=== PATIENT | female | born 1995 | race Caucasian/White ===

== ENCOUNTER → 2020-06-01 | Outpatient (CLI) | payer OTHER ==
--- NOTE | 2020-06-01 13:03 | RAD ---
Exam Date: 06/01/2020 11:39 AM XR BILATERAL HIP (WITH OR WITHOUT PELVIS) LEFT 2 VIEWS, XR LUMBAR SPINE 2-3V Indication: Reason: LOW BACK PAIN AT MULTIPLE SITES. LEFT HIP PAIN. / Spl. Instructions: / History: FINDINGS/ IMPRESSION: Lumbar spine: Anatomic alignment is maintained without spondylolisthesis. The vertebral body heights are maintaine d without evidence of compression fracture. Disc spaces are maintained. The SI joints appear norm al. The visualized soft tissues are within normal limits. Pelvis and left hip: No acute fracture or dislocation. Alignment and joint spaces are maintained. Soft tissues are within normal limits. Electronically signed by: Titi Quinteros MD (06/01/2020 1:00 PM) [id number]
== END ==
LOC: RAD 11:27
PROVIDERS: ATTEND Family Medicine
DX: M54.5 Low back pain (principal); M25.552 Pain in left hip
CPT/HCPCS: 72100; 73502